=== PATIENT | female | born 1995 | race Caucasian/White ===

== ENCOUNTER 2019-04-06 00:19 | Emergency (ER) | payer SELFPAY ==
[~2019-04-06] VITALS: Ht 160 cm; Wt 64.0 kg
--- NOTE | 2019-04-06 00:44 | Emergency Room Report ---
History of Present Illness General Chief Complaint: Overdose Source: Patient, EMS Present Illness HPI Is a 24-year-old female with unknown past medical history. She presents with chief complaint of drug overdose. She and her boyfriend were found passed out on the street. Bystander called 911. Per EMS her pupils were pinpoint. They gave her a milligram of Narcan IM and 4 mg IV. She became responsive. She said that she took some Xanax this morning. Denies any recent heroin abuse. On the [facility] system, she was prescribed Suboxone with the latest one in December. Patient denies any other drug use. She denies suicidal thoughts or homicidal thought. History is limited in this patient because of her sleepiness. Allergies: Coded Allergies: ACETAMINOPHEN (Verified Allergy, Unknown, 04/06/19) Uncoded Allergies: ATARAXONE (Allergy, Unknown, 04/06/19) Patient History Past Medical History: none, see triage record, old chart reviewed Past Surgical History: none Pertinent Family History: none Social History: Reports: drug use Last Menstrual Period: unk Now: No Immunizations: other Reviewed Nursing Documentation: PMH: Agreed; PSxH: Agreed Nursing Documentation-PMH Past Medical History Deferred: Pt Cognitively Impaired Review of Systems Eye: Denies: eye pain, blurred vision ENT: Denies: ear pain, nose congestion, throat swelling Respiratory: Denies: cough, shortness of breath Cardiovascular: Denies: chest pain, palpitations Gastrointestinal: Denies: abdominal pain, diarrhea, nausea, vomiting Musculoskeletal: Denies: back pain, joint pain Skin: Denies: rash Neurological: Denies: headache, numbness Endocrine: Denies: increased thirst, increased urine Hematologic/Lymphatic: Denies: easy bruising All Other Systems: negative except mentioned in HPI Physical Exam Vital Signs Date Time Temp Pulse Resp B/P (MAP) Pulse Ox O2 Delivery O2 Flow Rate FiO2 04/06/19 00:26 97.0 112 14 136/91 (106) 97 Room Air vitals normal except for tachycardia Sp02 EP Interpretation: reviewed, normal General Appearance: well appearing, no apparent distress, alert Head: normocephalic, atraumatic Eyes: bilateral eye PERRL, bilateral eye EOMI ENT: hearing grossly normal, normal pharynx Neck: full range of motion, supple, no meningismus Respiratory: chest non-tender, lungs clear, normal breath sounds Cardiovascular #1: regular rate, rhythm, no murmur Gastrointestinal: normal bowel sounds, non tender, no mass, no organomegaly, no bruit, non-distended Musculoskeletal: back normal, gait/station normal, normal range of motion Psychiatric: mood/affect normal Medical Decision Making Diagnostic Impression: Primary Impression: Drug overdose Qualified Codes: T50.901A - Poisoning by unspecified drugs, medicaments and biological substances, accidental (unintentional), initial encounter ER Course Patient presents with a drug overdose. She slept for several hours. Now she is awake and able to walk. She and her boyfriend wanted to leave. They took an Uber home. Last Vital Signs Date Time Temp Pulse Resp B/P (MAP) Pulse Ox O2 Delivery O2 Flow Rate FiO2 04/06/19 00:26 97.0 112 14 136/91 (106) 97 Room Air Status: improved Disposition: HOME, SELF-CARE Condition: Improved Additional Instructions: Abstain from drugs and alcohol. Follow-up with your doctor in 7 days. Return if worse. Benja Cronin MD Apr 06, 2019 00:44
[2019-04-06 00:57] VITALS: BP 136/91
--- NOTE | 2019-04-06 00:59 | NUR ---
ER Nurse Note: Pt BIBA from street with significant other c/o ingesting unk amount of heroin and xanax. Pt a&ox3, VSS, slurs speech. Lung sounds clear. IV established by EMS on route. Per EMS, pt was given 4 IM of narcan and 4 IV of narcan. Bruising on BLE; skin intact. Will continue to montior.
[2019-04-06 01:01] LABS: BILIRUBIN, URINE NEGATIVE (NEGATIVE); COLOR,URINE PALE YELLOW; GLUCOSE, URINE (UA) NEGATIVE (NEGATIVE); KETONES,URINE NEGATIVE (NEGATIVE); LEUKOCYTE ESTERASE ,URINE 3+ (NEGATIVE); NITRITE,URINE NEGATIVE (NEGATIVE); PH,URINE 5 (4.5-8.0); PROTEIN,URINE NEGATIVE (NEGATIVE); UROBILINOGEN,URINE NORMAL MG/DL (0.0-1.0)
[2019-04-06 01:13] LABS: APPEARANCE,URINE SLIGHTLY CLOUDY
--- NOTE | 2019-04-06 01:20 | NUR ---
ER Nurse Note: Pt asleep, no signs of distress, pt stable. Pt responds to deep stimulation. Significant other at pt side. All safety measure met; will continue to [facility].
[2019-04-06] MEDS ORDERED: cefTRIAXone 1 GM in NS 55 ML IVPB ONE (01:45)
[2019-04-06 02:21] VITALS: BP 90/58
[2019-04-06 02:50] VITALS: BP 90/58
--- NOTE | 2019-04-06 02:50 | NUR ---
ER Nurse Note: Significant other pulled out IV on RT hand; catheter intact and pt cleaned. Charge nurse, security, primary RN, hospital laboratory technician, attempted to reason with pt and significant other; significant other started yelling "we can do anything we want" and walking with pt. Pt walked with steady gait. Pt left with all belongings; pt refused to sign discharge paperwork and left without discharge paper.
== END 2019-04-06 02:50 | disposition home or self-care (01) ==
LOC: EDBD 00:19 → EMR 00:59
DX: T50.901A Poisoning by unspecified drugs, medicaments and biological substances, accidental (unintentional), initial encounter (principal); X58.XXXA Exposure to other specified factors, initial encounter; Z88.6 Allergy status to analgesic agent
CPT/HCPCS: 36415; 80307; 81003; 81025; 87086; 96365; 99284; G0480; J0696; 80329